=== PATIENT | female | born 1995 | race Two or more races ===

== ENCOUNTER 2017-01-07 13:24 | Emergency (ER) | payer BC ==
[~2017-01-07] VITALS: Ht 172.7 cm; Wt 88.9 kg
[2017-01-07] MEDS ORDERED: ACYC800T (13:32)
[2017-01-07] MEDS ORDERED: KETOROLAC 60 MG/2 ML VIAL (J1885) IM ONE (14:00)
[2017-01-07] MEDS ORDERED: ONDANSETRON 4 MG ORAL DISINTEGRATING TAB (S0181) PO ONE ×2 (14:15→14:30)
[2017-01-07 14:42] VITALS: BP 132/60
[2017-01-07] MEDS ORDERED: METOCLOPRAMIDE 10 MG TAB PO ONE (14:45)
[2017-01-07] MEDS ORDERED: ULTR50TA PO (14:46)
[2017-01-07] MEDS ORDERED: REGL10TA6 PO (14:46)
== END 2017-01-07 15:18 | disposition home or self-care (01) ==
LOC: M ED 14:36
DX: R10.2 Pelvic and perineal pain (principal); G89.29 Other chronic pain
CPT/HCPCS: 81001; 81025; 96372; 99283; J1885

== ENCOUNTER 2017-12-03 19:58 | Day surgery (SDC) | payer BC ==
[2017-12-03] MEDS: NS 1,000 ML IV (21:40)
[2017-12-03] MEDS: MORPHINE 4 MG/ML 1ML VIAL/SYRINGE (J2270) IV (21:49)
[2017-12-03] MEDS: ONDANSETRON 4MG/2ML VIAL (J2405) IV (21:49)
[2017-12-03 22:04] LABS: BASO % 0.2 % (0.0-1.0); HEMOGLOBIN 14.6 g/dl (12.0-15.5); IMMATURE GRANULOCYTE % 0.5 % (0-3.0); LYMPH # 0.9 10^3/uL (1.5-6.5); LYMPH % 4.7 % (24.0-44.0); MEAN CORPUSCULAR HEMOGLOBIN 28.7 pg (27.0-33.0); MEAN CORPUSCULAR HGB CONC 34.8 g/dl (32.0-36.5); MEAN CORPUSCULAR VOLUME 82.5 fl (80.0-96.0); MONO # 0.9 10^3/uL (0.0-0.8); MONO % 4.8 % (0.0-5.0); NEUTROPHILS # 16.9 10^3/uL (1.8-7.7); NEUTROPHILS % 89.8 % (36.0-66.0); PLATELET COUNT, AUTOMATED 282 10^3/uL (150-450); RED BLOOD COUNT 5.09 10^6/uL (4.00-5.40); RED CELL DISTRIBUTION WIDTH 12.3 % (11.5-14.5); WHITE BLOOD COUNT 18.8 10^3/uL (4.0-10.0)
[2017-12-03 22:10] LABS: KETONE, URINE AUTO RFX 2+ mg/dL (NEGATIVE); LEUKOCYTE ESTERASE UR AUTO RFX TRACE (NEGATIVE); MUCUS, URINE RFX LARGE (NEGATIVE); NITRITE, URINE AUTO RFX NEGATIVE (NEGATIVE); RBC, URINE AUTO RFX 2 /HPF (0-3); SPECIFIC GRAVITY UR AUTO RFX 1.033 (1.002-1.035); SQUAM EPITHELIAL CELL UR AURFX 13 /HPF (0-6); WBC, URINE AUTO RFX 4 /HPF (0-3)
[2017-12-03 22:12] LABS: CONTROL LINE HCG INT CTR LINE PRESENT; HCG, SERUM QUALITATIVE NEGATIVE (NEGATIVE)
[2017-12-03 22:27] LABS: ALBUMIN 4.6 GM/DL (3.2-5.2); ALBUMIN/GLOBULIN RATIO 1.24 (1.00-1.93); ALKALINE PHOSPHATASE 84 U/L (45-117); ALT/SGPT 19 U/L (12-78); AMYLASE 68 U/L (25-115); ANION GAP 13 MEQ/L (8-16); AST/SGOT 11 U/L (7-37); BILIRUBIN,DIRECT 0.2 MG/DL (0.0-0.2); BILIRUBIN,TOTAL 0.7 MG/DL (0.2-1.0); BLOOD UREA NITROGEN 19 MG/DL (7-18); CALCIUM LEVEL 9.5 MG/DL (8.5-10.1); CARBON DIOXIDE LEVEL 23 MEQ/L (21-32); CHLORIDE LEVEL 104 MEQ/L (98-107); CREATININE FOR GFR 0.87 MG/DL (0.55-1.30); GLUCOSE, FASTING 122 MG/DL (70-100); LIPASE 97 U/L (73-393); POTASSIUM SERUM 3.6 MEQ/L (3.5-5.1); SODIUM LEVEL 140 MEQ/L (136-145); TOTAL PROTEIN 8.3 GM/DL (6.4-8.2)
[2017-12-03] MEDS ORDERED: ISOVUE-370 76% 100ML VIAL (Q9967) As Ordered (23:35)
[2017-12-04] MEDS: CIPROFLOXACIN 400 MG in APPROPRIATE DILUENT 1 EA IV ×2 (00:30→12:54)
[2017-12-04] MEDS: BUPIVACAINE HCL 0.25% 30 ML VIAL As Ordered (00:45)
[2017-12-04] MEDS: metroNIDAZOLE 500 MG in APPROPRIATE DILUENT 1 EA IV ×2 (01:44→08:25)
[2017-12-04] MEDS ORDERED: ROCURONIUM BROMIDE 50 MG/5 ML VIAL As Ordered (01:52)
[2017-12-04] MEDS ORDERED: MIDAZOLAM INJ 2 MG/2 ML VIAL (J2250) As Ordered (01:52)
[2017-12-04] MEDS ORDERED: LIDOCAINE 2% INJ 100 MG/5 ML SDV (FOR ANES.) As Ordered (01:52)
[2017-12-04] MEDS ORDERED: fentaNYL 250 MCG/5 ML INJECTION (J3010) As Ordered (01:52)
[2017-12-04] MEDS ORDERED: PROPOFOL 200 MG/20 ML VIAL As Ordered (01:52)
[2017-12-04] MEDS ORDERED: dexameTHASONE 4 MG/ML 1ML VIAL (J1100) As Ordered (01:52)
[2017-12-04] MEDS ORDERED: ONDANSETRON 4MG/2ML VIAL (J2405) As Ordered (02:00)
[2017-12-04] MEDS ORDERED: NEOSTIGMINE 10 MG/10 ML VIAL (J2710) As Ordered (02:02)
[2017-12-04] MEDS ORDERED: KETOROLAC 60 MG/2 ML VIAL (J1885) As Ordered (02:02)
[2017-12-04] MEDS ORDERED: GLYCOPYRROLATE INJ 0.2 MG/ML 2 ML VIAL As Ordered (02:02)
[2017-12-04] MEDS ORDERED: MORPHINE 4 MG/ML 1ML VIAL/SYRINGE (J2270) IV (03:00)
[2017-12-04] MEDS ORDERED: METOCLOPRAMIDE INJ 10MG/2ML VIAL (J2765) IV ×2 (03:00)
[2017-12-04] MEDS ORDERED: ACETAMINOPHEN TAB 650MG DOSE (2X325MG) PO (03:00)
[2017-12-04] MEDS ORDERED: KETOROLAC 30 MG/ML VIAL (J1885) IV ×2 (03:00→06:00)
[2017-12-04] MEDS ORDERED: ONDANSETRON 4MG/2ML VIAL (J2405) IV ×2 (03:00)
[2017-12-04] MEDS ORDERED: fentaNYL 100 MCG/2 ML INJECTION (J3010) IV (03:00)
[2017-12-04] MEDS ORDERED: MEPERIDINE INJ 25 MG/ML VIAL (J2175) IV (03:00)
[2017-12-04] MEDS: LR 1,000 ML IV ×3 (03:00→08:50)
[2017-12-04] MEDS: NORCO, ANEXSIA 5/325MG TABLET (HYDROcodone/ACETAMINOPHEN) PO (11:33)
== END 2017-12-04 14:30 | disposition home or self-care (01) ==
LOC: M SDC 12-04 00:50 → M ED 19:58 → M MS5PR 12-04 03:40 → M SDC 12-04 14:30
DX: K35.80 Unspecified acute appendicitis (principal); J45.909 Unspecified asthma, uncomplicated; Z88.0 Allergy status to penicillin; Z88.1 Allergy status to other antibiotic agents; Z72.0 Tobacco use
CPT/HCPCS: 44970

== ENCOUNTER → 2019-10-19 | Outpatient (CLI) | payer BC ==
[~2019-10-19] MED LIST: ACYC800T; ACYC800T PO; CIPR500T3 PO; HYDR-3715 PO; REGL10TA6 PO; ULTR50TA8 PO
--- NOTE | 2019-10-19 16:15 | REP ---
NASAL BONE SERIES: Three views of the nasal bones are performed. There is a nondisplaced fracture of the nasal bones. Maxillary spines are intact. The visualized paranasal sinuses demonstrate no abnormal opacification. IMPRESSION: Nondisplaced fracture of the nasal bones. Electronically Signed by Basil Prabhakar MD 10/20/2019 04:59 P
== END ==
LOC: M WUC 14:24
PROVIDERS: ATTEND Physician Assistant
DX: S02.2XXA Fracture of nasal bones, initial encounter for closed fracture (principal); X58.XXXA Exposure to other specified factors, initial encounter; Y93.9 Activity, unspecified; Y92.9 Unspecified place or not applicable

== ENCOUNTER 2019-10-31 06:07 | Day surgery (SDC) | payer BC ==
[~2019-10-31] VITALS: Ht 170.2 cm; Wt 80.5 kg
[~2019-10-31 06:07] MED LIST changes: +LR 1,000 ML IV SCH; +METF-877 PO; +NEXP1IMP SC; +VALA500T5 PO
[2019-10-31] MEDS ORDERED: METHYLENE BLUE 0.5% (5MG/ML) 10 ML AMP (PROVAYBLUE)(Q9968 PER 1MG) As Ordered ONE (07:10)
[2019-10-31] MEDS ORDERED: LIDOCAINE W/EPINEPHRINE 1% 20ML VIAL As Ordered ONE (07:10)
[2019-10-31] MEDS ORDERED: EPINEPHrine 1MG/ML INJ 30ML MD-VIAL As Ordered ONE (07:10)
[2019-10-31] MEDS ORDERED: MIDAZOLAM INJ 2 MG/2 ML VIAL (J2250) As Ordered ONE (07:15)
[2019-10-31] MEDS ORDERED: ROCURONIUM BROMIDE 50 MG/5 ML VIAL As Ordered ONE (07:15)
[2019-10-31] MEDS ORDERED: LIDOCAINE 2% INJ 100 MG/5 ML SDV (FOR ANES.) As Ordered ONE (07:15)
[2019-10-31] MEDS ORDERED: propofoL 200 MG/20 ML VIAL As Ordered ONE (07:15)
[2019-10-31] MEDS ORDERED: fentaNYL 100 MCG/2 ML INJECTION (J3010) As Ordered ONE ×2 (07:16→07:44)
[2019-10-31] MEDS ORDERED: OXYMETAZOLINE NASAL SPRAY (AFRIN) As Ordered ONE (07:36)
[2019-10-31] MEDS ORDERED: METOCLOPRAMIDE INJ 10MG/2ML VIAL (J2765) As Ordered ONE (07:42)
[2019-10-31] MEDS ORDERED: dexameTHASONE 4 MG/ML 1ML VIAL (J1100) As Ordered ONE (07:42)
[2019-10-31] MEDS ORDERED: KETOROLAC 60 MG/2 ML VIAL (J1885) As Ordered ONE (07:42)
[2019-10-31] MEDS ORDERED: ONDANSETRON 4MG/2ML VIAL (J2405) As Ordered ONE (07:42)
[2019-10-31] MEDS ORDERED: oxyCODONE 5MG TAB As Ordered ONE (08:05)
[2019-10-31] MEDS: oxyCODONE 5MG TAB PO PRN ×2 (08:10→09:14)
[2019-10-31] MEDS ORDERED: ONDANSETRON 4MG/2ML VIAL (J2405) IV PRN (08:15)
[2019-10-31] MEDS ORDERED: fentaNYL 100 MCG/2 ML INJECTION (J3010) IV PRN (08:15)
[2019-10-31] MEDS: HYDROMORPHONE HCL 0.5 MG/ 0.5 ML SYRINGE (J1170 PER 1) IV PRN ×2 (08:15→08:20)
[2019-10-31] MEDS ORDERED: LR 1,000 ML IV SCH (08:15)
[2019-10-31 09:45] VITALS: BP 133/68
== END 2019-10-31 09:50 | disposition home or self-care (01) ==
LOC: M SDC 06:07
PROVIDERS: ATTEND Specialist
DX: S02.2XXA Fracture of nasal bones, initial encounter for closed fracture (principal); X58.XXXA Exposure to other specified factors, initial encounter; Y92.89 Other specified places as the place of occurrence of the external cause; Y93.9 Activity, unspecified; Y99.9 Unspecified external cause status; F17.290 Nicotine dependence, other tobacco product, uncomplicated; Z79.84 Long term (current) use of oral hypoglycemic drugs; L70.0 Acne vulgaris
CPT/HCPCS: 21320; 81025; J1100; J1170; J1885; J2250; J2405; J2765; J3010; Q9968

== ENCOUNTER 2022-04-09 14:28 | Outpatient (RCR) | payer BC | END 2022-04-15 | LOC: M OUTALCOH 14:28 | PROVIDERS: ATTEND Psychiatry & Neurology Psychiatry | DX: F12.10 Cannabis abuse, uncomplicated (principal) ==

== ENCOUNTER → 2022-04-09 | Outpatient (CLI) | payer BC ==
[~2022-04-09] MED LIST changes: +ACYC1TAB4; +ACYC1TAB4 PO; -ACYC800T; -ACYC800T PO; +ETON68IM SC; -LR 1,000 ML IV SCH; -NEXP1IMP SC
== END ==
LOC: M OUTALCOH 09:57
PROVIDERS: ATTEND Psychiatry & Neurology Psychiatry
DX: Z03.89 Encounter for observation for other suspected diseases and conditions ruled out (principal)

== ENCOUNTER 2022-05-12 16:00 | Outpatient (RCR) | payer BC | END 2022-05-15 | LOC: M OUTALCOH 16:00 | PROVIDERS: ATTEND Psychiatry & Neurology Psychiatry | DX: F12.10 Cannabis abuse, uncomplicated (principal) ==

== ENCOUNTER 2022-06-11 13:04 | Outpatient (RCR) | payer BC | END 2022-06-15 | LOC: M OUTALCOH 13:04 | PROVIDERS: ATTEND Psychiatry & Neurology Psychiatry | DX: F12.10 Cannabis abuse, uncomplicated (principal) ==

== ENCOUNTER 2022-07-14 16:00 | Outpatient (RCR) | payer BC | END 2022-07-15 | LOC: M OUTALCOH 16:00 | PROVIDERS: ATTEND Psychiatry & Neurology Psychiatry | DX: F12.10 Cannabis abuse, uncomplicated (principal) ==

== ENCOUNTER 2022-08-04 16:00 | Outpatient (RCR) | payer BC | END 2022-08-15 | LOC: M OUTALCOH 16:00 | PROVIDERS: ATTEND Psychiatry & Neurology Psychiatry | DX: F12.10 Cannabis abuse, uncomplicated (principal) ==